=== PATIENT | female | born 2000 | race Caucasian/White ===

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

== ENCOUNTER 2020-05-29 08:00 | Outpatient (CLI) | payer MEDICAID ==
[2020-05-29] MEDS ORDERED: hydroxyzine (14:38)
[2020-05-29] MEDS ORDERED: SUMA100T4 PO (14:38)
[2020-05-29] MEDS ORDERED: omeprazole (14:38)
[2020-05-29] MEDS ORDERED: LORA-446 PO (14:38)
[2020-05-29] MEDS ORDERED: ARIP15TA3 PO (14:38)
[2020-05-29] MEDS ORDERED: promethazine (14:38)
[2020-05-29] MEDS ORDERED: TROKENDI (14:38)
[2020-05-29] MEDS ORDERED: TRAZ50TA66 PO (14:38)
[2020-05-29] MEDS ORDERED: [UNRECOGNIZED DRUG - OTHER] (14:38)
[2020-05-29 14:58] LABS: BASOPHILS % (AUTO) 1 % (0-1); EOSINOPHILS % (AUTO) 1 % (1-7); LYMPHOCYTES % (AUTO) 27 % (22-44); MEAN CORPUSCULAR HEMOGLOBIN 29.6 pg (27.0-34.8); MEAN PLATELET VOLUME 8.3 fL (7.4-10.4); MONOCYTES % (AUTO) 7 % (2-9); NEUTROPHILS % (AUTO) 66 % (42-75); PLATELET COUNT 226 x10^3/uL (130-400); RED BLOOD COUNT 4.86 x10^6/uL (3.82-5.3); RED CELL DISTRIBUTION WIDTH 13.7 % (9.6-15.2)
[2020-05-29 15:00] LABS: MD NO
== END 2020-05-29 23:59 | disposition home or self-care (01) ==
LOC: STAR 08:00
PROVIDERS: ATTEND Obstetrics & Gynecology
DX: Z01.818 Encounter for other preprocedural examination (principal); R10.2 Pelvic and perineal pain; N93.9 Abnormal uterine and vaginal bleeding, unspecified
CPT/HCPCS: 36415; 84703; 85025

== ENCOUNTER → 2020-05-31 | Outpatient (CLI) | payer MEDICAID ==
[~2020-05-31] MED LIST: ARIP15TA3 PO; LORA-446 PO; SUMA100T4 PO; TRAZ50TA66 PO; TROKENDI; [UNRECOGNIZED DRUG - OTHER]; hydroxyzine; omeprazole; promethazine
== END | disposition home or self-care (01) ==
LOC: STAR 14:12
PROVIDERS: ATTEND Anesthesiology
DX: Z20.828 Contact with and (suspected) exposure to other viral communicable diseases (principal)
CPT/HCPCS: 87635

== ENCOUNTER 2020-06-05 13:10 | Day surgery (SDC) | payer MEDICAID ==
[~2020-06-05] VITALS: Ht 170.2 cm; Wt 106.0 kg
[~2020-06-05 13:10] MED LIST changes: +EPHEDRINE 50 MG/ML, 1ML IVPush PRN; +HYDROmorphone 1 MG/ML, 1ML INJ IVPush PRN; +LABETALOL 5MG/ML, 20ML IV PRN; +MEPERIDINE/PF 25MG/0.5ML IVPush PRN; +ONDANSETRON 2MG/ML, 2ML IVPush PRN; +OXYcodone 5 MG/5 ML ORAL.SOL UDC PO PRN; +PROMETHAZINE 25 MG/ML, 1ML IVPush PRN; +hydrALAzine 20 MG/ML, 1ML IV PRN
[2020-06-05] MEDS ORDERED: ACETAMINOPHEN 500 MG TABLET PO ONE (13:23)
[2020-06-05] MEDS ORDERED: LACTATED RINGERS 1,000 ML IV ONE (13:24)
[2020-06-05] MEDS ORDERED: CHLORHEXIDINE 15 ML UDC MM STA (13:24)
[2020-06-05 13:42] VITALS: BP 148/91
[2020-06-05] MEDS ORDERED: LIDOCAINE-MPF 1%, 2ML ONE (13:44)
[2020-06-05] MEDS ORDERED: LIDOCAINE-MPF 1%, 2ML INFIL STA (13:56)
[2020-06-05 14:37] LABS: HCG UR SG 1.021 (1.003-1.030)
[2020-06-05] MEDS ORDERED: MIDAZOLAM 1 MG/ML, 2ML ONE (15:49)
[2020-06-05] MEDS ORDERED: FENTANYL PF 100 MCG/2ML ONE ×2 (15:50→18:09)
[2020-06-05] MEDS ORDERED: BUPIVACAINE/PF 0.25% ONE (15:54)
[2020-06-05] MEDS ORDERED: EPINEPHRINE 1 MG/ML, 1ML ONE (15:54)
[2020-06-05] MEDS ORDERED: SUCCINYLCHOLINE 20 MG/ML, 10ML ONE (16:48)
[2020-06-05] MEDS ORDERED: CEFAZOLIN 1,000 MG ONE (16:48)
[2020-06-05] MEDS ORDERED: SUGAMMADEX 200 MG/2 ML IVPush ONE (16:48)
[2020-06-05] MEDS ORDERED: PROPOFOL 10 MG/ML, 20ML ONE (16:48)
[2020-06-05] MEDS ORDERED: KETOROLAC 30 MG/1 ML ONE ×2 (16:48→17:35)
[2020-06-05] MEDS ORDERED: ROCURONIUM 10MG/ML,5ML ONE (16:48)
[2020-06-05] MEDS ORDERED: DEXAMETHASONE 4 MG/ML, 1ML ONE (16:48)
[2020-06-05] MEDS ORDERED: ONDANSETRON 2MG/ML, 2ML ONE (16:48)
[2020-06-05] MEDS ORDERED: SILVER NITRATE STICK TP ONE (17:36)
[2020-06-05] MEDS ORDERED: OXYcodone 5 MG/5 ML ORAL.SOL UDC ONE (18:09)
[2020-06-05] MEDS: FENTANYL PF 100 MCG/2ML IV PRN ×2 (18:12→18:20)
== END 2020-06-05 19:55 | disposition home or self-care (01) ==
LOC: OUT 13:10
PROVIDERS: ATTEND Obstetrics & Gynecology
DX: N94.6 Dysmenorrhea, unspecified (principal); N93.9 Abnormal uterine and vaginal bleeding, unspecified; N94.10 Unspecified dyspareunia; E28.2 Polycystic ovarian syndrome; N83.8 Other noninflammatory disorders of ovary, fallopian tube and broad ligament; R30.0 Dysuria; G43.909 Migraine, unspecified, not intractable, without status migrainosus; K21.9 Gastro-esophageal reflux disease without esophagitis; F32.9 Major depressive disorder, single episode, unspecified; F41.9 Anxiety disorder, unspecified; F12.90 Cannabis use, unspecified, uncomplicated; Z79.82 Long term (current) use of aspirin; Z79.891 Long term (current) use of opiate analgesic; Z79.899 Other long term (current) drug therapy; Z88.8 Allergy status to other drugs, medicaments and biological substances
CPT/HCPCS: 58558; 58662; 81025; 88305; J0171; J0330; J0690; J1100; J1885; J2250; J2405; J2704; J3010; J7120

== ENCOUNTER 2020-08-12 13:13 | Emergency (ER) | payer MEDICAID ==
[~2020-08-12] VITALS: Ht 167.6 cm; Wt 102.3 kg
[~2020-08-12 13:13] MED LIST changes: -EPHEDRINE 50 MG/ML, 1ML IVPush PRN; -HYDROmorphone 1 MG/ML, 1ML INJ IVPush PRN; -LABETALOL 5MG/ML, 20ML IV PRN; -MEPERIDINE/PF 25MG/0.5ML IVPush PRN; -ONDANSETRON 2MG/ML, 2ML IVPush PRN; -OXYcodone 5 MG/5 ML ORAL.SOL UDC PO PRN; -PROMETHAZINE 25 MG/ML, 1ML IVPush PRN; -hydrALAzine 20 MG/ML, 1ML IV PRN
[2020-08-12] MEDS ORDERED: TRAZODONE 100MG TABLET PO PRN (16:00)
[2020-08-12] MEDS ORDERED: LORazepam 1MG TABLET PO ONE (16:00)
[2020-08-12] MEDS ORDERED: LORazepam 1MG TABLET ONE (16:11)
[2020-08-12 16:42] LABS: BASOPHILS % (AUTO) 1 % (0-1); EOSINOPHILS % (AUTO) 0 % (1-7); LYMPHOCYTES % (AUTO) 12 % (22-44); MEAN CORPUSCULAR HEMOGLOBIN 29.9 pg (27.0-34.8); MEAN CORPUSCULAR HGB CONC 33.5 g/dL (32.4-35.8); MEAN PLATELET VOLUME 7.9 fL (7.4-10.4); MONOCYTES % (AUTO) 6 % (2-9); NEUTROPHILS % (AUTO) 81 % (42-75); PLATELET COUNT 254 x10^3/uL (130-400); RED BLOOD COUNT 4.82 x10^6/uL (3.82-5.3); RED CELL DISTRIBUTION WIDTH 13.8 % (9.6-15.2)
[2020-08-12 16:53] LABS: ALBUMIN 4.1 g/dL (3.4-5.0); ANION GAP 8 mmol/L (5-15); CALCIUM 9.2 mg/dL (8.5-10.1); CHLORIDE 109 mmol/L (98-107); CREATININE 0.91 mg/dL (0.55-1.02)
[2020-08-12 16:55] LABS: SALICYLATE LEVEL < 1.7 mg/dL (2.8-20.0)
[2020-08-12 16:57] LABS: MD NO
[2020-08-12 17:27] LABS: AMPHETAMINE SCREEN, URINE Negative (Negative); BARBITURATE SCREEN, URINE Negative (Negative); BENZODIAZEPINE SCREEN, URINE Negative (Negative); CANNABINOID SCREEN, URINE Positive (Negative); COCAINE SCREEN, URINE Negative (Negative); METHADONE SCREEN, URINE Negative (Negative); OPIATE SCREEN, URINE Negative (Negative)
--- NOTE | 2020-08-12 17:30 | NUR ---
PT IS SCREAMING LOUD SHE POSSIBLY CAN MAKING DEMANDS. I EDUCATED THE PT SEVERAL TIMES ON ED POLICIES AND PT REFUSES TO FOLLOW INSTRUCTIONS. PT MAKING THREAT TO [facility]. SECURITY CALLED AND RESTRAINST PLACED ON BED. LUCY CHRISTENSEN IS AT BEDSIDE TALKING WITH PT.
[2020-08-12] MEDS ORDERED: ZIPRASIDONE 20 MG INJ IM ONE ×4 (17:34→18:30)
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
--- NOTE | 2020-08-12 18:37 | NUR ---
MEDICATION EFFECTIVE. PT NOW CALM AND COOPERATIVE. RESTRAINTS REMOVED PER SECURITY.
--- NOTE | 2020-08-12 19:50 | NUR ---
[facility] can't take this referral, not appropriate insurance coverage.
--- NOTE | 2020-08-12 20:37 | NUR ---
TP RN: PACKET FAXED TO [facility], [facility], AND [facility].
[2020-08-12] MEDS ORDERED: TRAZODONE 100MG TABLET ONE (20:38)
[2020-08-12] MEDS ORDERED: ZIPRASIDONE 20MG CAPSULE ONE (20:38)
--- NOTE | 2020-08-12 20:56 | NUR ---
TP RN: CONFIRMATION FAX RECEIVED FROM [facility], [facility], AND [facility].
[2020-08-12] MEDS ORDERED: ZIPRASIDONE 20MG CAPSULE PO SCH (21:00)
--- NOTE | 2020-08-13 02:15 | NUR ---
PT RESTING IN BED, PT BREATHING EQUAL AND UNLABORED. PT E ROOM SI SECURED WITH SITTER AT PT DOOR. PT HS NO CURRENT WANTS OR NEED AT THIS TIME.
--- NOTE | 2020-08-13 06:05 | NUR ---
REPORT TO ONEIDA AT [facility]
[2020-08-13 06:06] VITALS: BP 135/78
--- NOTE | 2020-08-13 06:16 | NUR ---
MAK RN: ONEIDA RIVERA [facility] ACCEPTING PATIENT. MD ACCEPTING IS DR. NORRIS.
--- NOTE | 2020-08-13 06:18 | NUR ---
[facility] ACCEPTING AT 0830 AM.
--- NOTE | 2020-08-13 06:29 | NUR ---
PT RESTING IN BED, PT BREATHING EQUAL AND UNLABORED. PT E ROOM SI SECURED WITH SITTER AT PT DOOR. PT REQUESTING ANXIETY MED AT THIS TIME.
[2020-08-13] MEDS ORDERED: LORazepam 1MG TABLET ONE (06:33)
--- NOTE | 2020-08-13 07:00 | NUR ---
REPORT TO STEVE FRANCO
--- NOTE | 2020-08-13 07:05 | NUR ---
REPORT FROM ELISABET FRANCO. PT CRYING IN DOORWAY OF ROOM, EMOTIONAL SUPPORT PROVIDED, PT BACK TO [place] AT THIS TIME, PER NOC PT MEDICATED WITH PRN ATIVAN, MEAL TRAYS ORDERED, SI PRECAUTIONS OBSERVED
--- NOTE | 2020-08-13 08:24 | NUR ---
PT GIVEN MEAL TRAY, UPDATED ON POC.
[2020-08-13] MEDS ORDERED: LORazepam 1MG TABLET PO PRN (09:00)
--- NOTE | 2020-08-13 09:10 | NUR ---
PT LEFT WITH [facility], PER TASK RN PT [facility] GIVEN ALL PT BELONGINGS
== END 2020-08-13 09:39 ==
LOC: ED 17:59
DX: R45.851 Suicidal ideations (principal); F31.9 Bipolar disorder, unspecified; F43.12 Post-traumatic stress disorder, chronic; F17.200 Nicotine dependence, unspecified, uncomplicated; Z91.14 Patient's other noncompliance with medication regimen
CPT/HCPCS: 36415; 80048; 80299; 80307; 80329; 81025; 82040; 85025; 96372; 99285; J3486; G0480